=== PATIENT | female | born 1970 | race Caucasian/White ===

== ENCOUNTER 2021-04-21 18:10 | Emergency (ER) | payer OTHER ==
[~2021-04-21] VITALS: Ht 170.2 cm; Wt 72.6 kg
--- NOTE | 2021-04-21 18:39 | NUR ---
Pt states requiring tooth extraction to (R) lower tooth. Denies requiring pain management. States being more concerned about potentially needing an antibiotic.
[2021-04-21] MEDS ORDERED: CLIN300C3 PO (19:01)
[2021-04-21] MEDS ORDERED: OXYC-128 PO (19:01)
[2021-04-21 19:05] VITALS: BP 133/75
--- NOTE | 2021-04-21 19:05 | NUR ---
Pt was evaluated by provider. Patient discharged to home in stable condition. Written and verbal after care instructions given. Patient verbalizes understanding of instructions. Stressed follow up or return to ER for worsening s/s.
== END 2021-04-21 19:06 | disposition home or self-care (01) ==
LOC: ER 18:11
DX: K04.7 Periapical abscess without sinus (principal); M27.2 Inflammatory conditions of jaws
CPT/HCPCS: A4663

== ENCOUNTER 2021-09-17 17:09 | Emergency (ER) | payer MEDICAID, OTHER ==
[~2021-09-17] VITALS: Ht 170.2 cm; Wt 72.6 kg
[~2021-09-17 17:09] MED LIST: CLIN300C3 PO; OXYC-128 PO
--- NOTE | 2021-09-17 17:29 | NUR ---
DR JONES AT BEDSIDE FOR EVALUATION
[2021-09-17] MEDS ORDERED: PERM60CR4 TP (17:46)
[2021-09-17] MEDS ORDERED: HYDR453.4 TP (17:46)
[2021-09-17] MEDS ORDERED: CAMP85GE TP (17:47)
--- NOTE | 2021-09-17 17:59 | NUR ---
DISCHARGE INSTRUCTIONS RENDERED PER MD ORDERS.
== END 2021-09-17 18:00 | disposition home or self-care (01) ==
LOC: ER 17:11
DX: R21 Rash and other nonspecific skin eruption (principal)
CPT/HCPCS: A4663